=== PATIENT | female | born 1965 | race Caucasian/White ===

== ENCOUNTER → 2017-05-30 | Outpatient (CLI) | payer BC ==
[~2017-05-30] VITALS: Ht 152.4 cm; Wt 121.1 kg
[~2017-05-30] MED LIST: COZAAR50 MG PO; Cozaar PO; EMS Nitrostat 0.4 mg SL; Ecotrin PO; GLUCOPHAGE500 MG PO; HYDROCHLOROTHIA25 MG PO; Hydrodiuril,Oretic,E PO; INDERIDE 40/1 TABLET PO; LO-DOSE ASPIRIN81 M2 PO; LOPRESSOR50 MG PO; LYRICA200 MG PO; Lipitor PO; Lopressor PO; NITROSTAT0.4 MG SL; PRAVACHOL20 MG PO; Plavix PO; Proventil,Ventolin H IH; VENTOLIN HFA18 GM IH
== END | disposition home or self-care (01) ==
LOC: AMB 09:53
PROVIDERS: Surgery
PROC: 0DJ08ZZ Inspection of Upper Intestinal Tract, Via Natural or Artificial Opening Endoscopic (ICD-10-PCS; principal; 2017-05-30)
DX: Z01.818 Encounter for other preprocedural examination (principal); K29.70 Gastritis, unspecified, without bleeding; K21.9 Gastro-esophageal reflux disease without esophagitis; E66.01 Morbid (severe) obesity due to excess calories; Z68.43 Body mass index [BMI] 50.0-59.9, adult; I25.10 Atherosclerotic heart disease of native coronary artery without angina pectoris; I25.2 Old myocardial infarction; I10 Essential (primary) hypertension; E11.40 Type 2 diabetes mellitus with diabetic neuropathy, unspecified; J45.909 Unspecified asthma, uncomplicated; Z87.891 Personal history of nicotine dependence; Z79.82 Long term (current) use of aspirin; Z79.84 Long term (current) use of oral hypoglycemic drugs; Z88.1 Allergy status to other antibiotic agents; Z91.040 Latex allergy status
CPT/HCPCS: 82948; 93005